=== PATIENT | male | born 1965 | race Caucasian/White ===

== ENCOUNTER → 2021-04-10 07:38 | Outpatient (CLI) | payer BC, SELFPAY ==
--- NOTE | ~2021-04-10 | MR_ITS ---
EXAMINATION: MR knee RT wo con DATE: 04/10/2021 08:25 INDICATION: Medial right knee pain TECHNIQUE: Magnetic resonance imaging (MRI) of the right knee was performed without intravenous contr ast. Sequences included coronal PD-weighted FSE, coronal PD-weighted FS FSE, sagittal T2-weighted FS E, sagittal PD-weighted FS FSE and axial PD weighted fat saturated FSE. COMPARISON: 12/17/2011. FINDINGS: Medial compartment: Medial meniscus is normal. Is approximately 14 x 11 mm region of partial-thickness chondral ulceratio n and fissuring which appears to involve greater than 50% the cartilage thickness but without degener ative subchondral changes at the central aspect of the weightbearing medial femoral condyle. Mild sha llow chondral surface regularity at the central aspect. Lateral tibial plateau. There is a small celina on of mild subarticular edema along the medial rim of the medial tibial plateau. Lateral compartment: Lateral meniscus is normal. Approximately 12 x 4 mm region of similar partial-thickness chondral ulce ration and fissuring at the anterior to central weightbearing lateral femoral condyle. Deep chondral fissuring at the central aspect of the lateral tibial plateau. Both regions or without associated deg enerative subchondral changes. Patellofemoral compartment: Partial-thickness trochlear chondral ulceration involving greater than 50% the cartilage thickness ce ntered along the trochlear groove. Partial-thickness cartilage loss and deep chondral fissure extendi ng across the patellar apical ridge. Small region of deep chondral ulceration at the medial patellar facet. No associated degenerative subchondral changes identified at the trochlear patella. Ligaments and tendons: Anterior and posterior cruciate ligaments are normal. The medial collateral ligament and fibular portia ateral ligament complex are normal. Enthesophytes at the patellar and tibial insertions of the otherw ise normal patellar and distal quadriceps tendons. The visualized medial and lateral hamstring tendon s as well as the iliotibial band are normal. Fluid: Small right knee joint effusion. No loose osteochondral bodies identified. Decrease in a now trace am ount of fluid in the prepatellar bursa consistent with minimal bursitis. Osseous/other: Normal marrow signal aside from the previous noted small region of mild subarticular edema at the med ial tibial plateau. Bone island at the lateral femoral condyle. No fracture or pathologic marrow repl acing process. IMPRESSION: 1. 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 2. Minimal patellar bursitis. Reviewed, dictated and finalized at location A.
== END ==
PROVIDERS: PCP Internal Medicine; Visit Provider Internal Medicine
DX: M17.11 Unilateral primary osteoarthritis, right knee (principal)
CPT/HCPCS: 73721

== ENCOUNTER 2021-11-01 17:27 | Outpatient (CLI) | payer OTHER, SELFPAY ==
--- NOTE | ~2021-11-01 | XR_ITS ---
XR lumbar spine min 4V DATE: 11/01/2021 17:48 INDICATION: Chronic low back pain TECHNIQUE: AP, lateral, bilateral oblique views and coned lateral lumbosacral view COMPARISON: None FINDINGS: Normal alignment of the lumbar spine. There is mild degenerative disc disease throughout th e lumbar spine including mild spurring. No fracture, bone destruction, spondylolysis or spondylolisth esis is evident. The lumbar pedicles are intact. The sacroiliac joints appear normal. IMPRESSION: Mild multilevel degenerative disc disease Reviewed, dictated and finalized at location J. L FOREMAN
== END 2021-11-01 17:28 | disposition home or self-care (01) ==
PROVIDERS: PCP Internal Medicine; Visit Provider Chiropractor
DX: M54.9 Dorsalgia, unspecified (principal); M51.36 Other intervertebral disc degeneration, lumbar region
CPT/HCPCS: 72110

== ENCOUNTER 2024-12-02 08:50 | Outpatient (CLI) | payer OTHER, SELFPAY ==
--- NOTE | ~2024-12-02 | XR_ITS ---
Cervical Spine: AP, lateral, open-mouth views Clinical History: Pain Findings: There is mild reversal normal cervical lordosis. No fracture or subluxation seen. There is advanced degenerative disc narrowing at C5-C6 and C6-C7. There is mild to moderate degenerative disc narrowing C4-C5. There are mild facet joint degenerative changes.. Pre-vertebral soft tissues are unr emarkable. Impression: Moderate degenerative spondylosis overall, as detailed above. Reviewed, dictated and finalized at [facility]. STRATE Impression: Moderate degenerative spondylosis overall, as detailed above.
--- NOTE | ~2024-12-02 | XR_ITS ---
Thoracic spine: Clinical Indication: Back pain AP and lateral views were performed. No fracture is seen. There is normal alignment of the vertebrae. The intervertebral disc spaces appe ar normal. Paravertebral soft tissues appear normal. Probable calcified gallstones noted. Impression: No significant abnormality of the thoracic spine. Probable calcified gallstones. Reviewed, dictated and finalized at [facility]. MILL MIXER Impression: No significant abnormality of the thoracic spine. Probable calcified gallstones.
== END 2024-12-02 08:51 | disposition home or self-care (01) ==
PROVIDERS: PCP Internal Medicine; Visit Provider Internal Medicine
DX: M47.892 Other spondylosis, cervical region (principal)
CPT/HCPCS: 72040; 72070

== ENCOUNTER 2025-06-16 10:24 | Outpatient (CLI) | payer OTHER, SELFPAY ==
--- NOTE | ~2025-06-16 | US_ITS ---
US right upper quadrant INDICATION: Right upper quadrant pain PROCEDURE: Realtime right upper abdominal ultrasound. COMPARISON: No prior studies for comparison. FINDINGS: The pancreas is normal without focal mass or pancreatic ductal dilation. Liver echotexture is normal without focal mass or intrahepatic biliary dilatation. There is normal directional flow in the portal vein. There are gallstones. No gallbladder wall thickening or pericholecystic fluid. Common bile duct measures 4 mm. No sonographic Ordaz's sign. IMPRESSION: 1: Cholelithiasis. Reviewed, dictated and finalized at location O. IMPRESSION: 1: Cholelithiasis.
== END 2025-06-16 10:25 | disposition home or self-care (01) ==
PROVIDERS: PCP Nurse Practitioner; Visit Provider Internal Medicine
DX: R10.11 Right upper quadrant pain (principal); K80.20 Calculus of gallbladder without cholecystitis without obstruction
CPT/HCPCS: 76705

== ENCOUNTER 2025-07-21 09:48 | Outpatient (CLI) | payer OTHER, SELFPAY ==
--- NOTE | ~2025-07-21 | NM_ITS ---
EXAMINATION: NM_HEPATWP_NM DATE: 07/21/2025 11:51 INDICATION: Assess gallbladder ejection fraction COMPARISON: None. TECHNIQUE: 4.9 mCi Tc-99m mebrofenin (Choletec) was administered intravenously. Scintigraphic images of the abdomen were obtained for one hour. 1.6 mcg sincalide (Kinevac) was administered by slow intravenous infusion, and imaging was continued for 30 minutes. Gallbladder ejection fraction was calculated by the technologist. FINDINGS: There is normal clearance of radiotracer from the blood pool. There is homogeneous tracer uptake by the liver. Activity progresses to the gallbladder and bowel. The gallbladder ejection fraction (GBEF) is 48% (normal 10-90%, but most patient with gallbladder dysfunction have GBEF < 35% which does overlap with the normal range). IMPRESSION: 1. Normal hepatobiliary scan Reviewed, dictated and finalized at location A.
--- OUTSIDE RECORDS SUMMARY | 2025-07-21 10:21 | XMS_ITS | Clinical Summary ---
Author Organization [facility] Address [address] [place] [address] Care Team Providers Care Outside Solar Sales Consultant Name Role Phone Cb Amador MD Primary Care Provider + [phone] Allergies No known active allergies Medications albuterol HFA (PROVENTIL HFA,VENTOLIN HFA,PROAIR HFA) 90 mcg/actuation inhalerIndicatio ns:Mild intermittent asthma with acute exacerbation INHALE 2 PUFFS BY MOUTH EVERY 6 HOURS NEEDED FOR WHEEZING 2 each 2 4 Active Additional Information Patient not taking.Reported on 10/12/2024 benzonatate (TESSALON) 100 mg capsuleIndicatio ns:Cough Take 1 capsule (100 mg total) by mouth 3 (three) times a day as needed for cough 42 capsule 4 Active Active Problems No known active problems Surgical History Surgery Date Site/Laterality Comments APPENDECTOMY Appendectomy LASIK TONSILLECTOMY Medical History Medical History Date Comments Asthma Asthma Hx Other Medical Back pain Hx Other Medical Lasik 2003 Hx Other Medical GERD 2003 Hx Other Medical Tonsilectomy 19 77 Family History Medical History Relation Name Comments Diabetes Other 1 Family history of Diabetes mellitus; Heart disease Other 2 Family history of Heart problems; Relation Name Status Comments Other 1 Other 2 Social History Tobacco Use Types Packs/Day Years Used Date Smoking Tobacco: Never Tobacco Cessation:Counseling Given: Not Answered Sex and Gender Information Value Date Recorded Sex Assigned at Not on file 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 Gender Identity Not on file Sexual Orientation Not on file Obstetrics History Last Filed Vital Signs Vital Sign Reading Time Taken Comments Blood Pressure 153/92 10/12/2024 8:36 AM LUMBER TRIPPER Pulse 94 10/12/2024 8:36 AM LUMBER TRIPPER Temperature 37.1 C (98.7 F) 10/12/2024 8:36 AM LUMBER TRIPPER Respiratory Rate 20 10/12/2024 8:36 AM LUMBER TRIPPER Oxygen Saturation 98% 10/12/2024 8:36 AM LUMBER TRIPPER Inhaled Oxygen Concentration - - Weight 90.7 kg (200 lb) 10/12/2024 8:36 AM LUMBER TRIPPER Height 177.8 cm (5' 10) 10/12/2024 8:36 AM LUMBER TRIPPER Body Mass Index 28.7 10/12/2024 8:36 AM LUMBER TRIPPER Plan of Treatment Health Maintenance Due Date Last Done Comments Colon Cancer Screening-Colonoscopy 1963 Depression Screening 1963 Hepatitis C Screening 1963 Prostate Cancer Screening-PSA 1963 Hepatitis B Screening 1981 Regular Well Visit/Exam 18-64 1981 Pneumococcal vaccine <65 (1 of 2 - PCV) 1982 Zoster Vaccine (1 of 2) 2013 Influenza Vaccine (#1) 2025 0, 09/03/2019, 09/13/2018, Additional history exists DTaP/Tdap/Td Vaccine (3 - Td or Tdap) 06/30/2027 06/30/2017, 06/17/2017 Insurance [facility] [employer] Care Teams Outside Solar Sales Consultant Relationship Specialty Start Date End Date Cb Amador MD PCP - General Internal Medicine 10/05/24
--- OUTSIDE RECORDS SUMMARY | 2025-07-21 10:21 | XMS_ITS | Clinical Summary ---
Author Organization [facility] Address [address] [place] [address] Care Team Providers Care Biological Engineer Name Role Phone Unavailable Primary Care Provider Unavailabl e Source Comments [facility],non-owned Affiliates and Associated Physician Practices is amultiple site organization consisting of ambulatory clinics and hospital sitesin [place], [place], [place] and [place]. This disclosure is being madepursuant to the Care Everywhere program and may not contain all information available regarding this patient. Last updated 18.[facility] Allergies No known active allergies Medications * Be aware that medications may not be up to date on this document. Alwaysverify current medications with the patient. 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 Gender Identity Not on file Sexual Orientation Not on file Last Filed Vital Signs Vital Sign Reading Time Taken Comments Blood Pressure 122/72 10/14/2019 9:15 AM FRAME CATCHER Pulse 72 10/14/2019 9:15 AM FRAME CATCHER Temperature 37.1 C (98.7 F) 10/14/2019 9:15 AM FRAME CATCHER Respiratory Rate 16 10/14/2019 9:15 AM FRAME CATCHER Oxygen Saturation 97% 10/14/2019 9:15 AM FRAME CATCHER Inhaled Oxygen Concentration - - Weight 86.2 kg (190 lb) 10/14/2019 9:15 AM FRAME CATCHER Height 177.8 cm (5' 10) 10/14/2019 9:15 AM FRAME CATCHER Body Mass Index 27.26 10/14/2019 9:15 AM FRAME CATCHER Plan of Treatment Health Maintenance Due Date Last Done Comments COLOGUARD (AGES 45-75) - COL ON CA SCREENING 1963 COLON MONITORING 1963 COLONOSCOPY - COLON CA SCREENING 1963 CT COLONOGRAPHY - COLON CA SCREENING 1963 Colorectal Cancer Screening 1963 FIT - COLON CA SCREENING 1963 FLEX SIG - COLON CA SCREENING 1963 LIPID TESTING 1963 HIV SCREENING 1978 HEPATITIS C SCREENING 07/08/1981 DTAP/TDAP/TD VACCINES (1 - Tdap) 1982 PNEUMOCOCCAL VACCINE 50+ (1 of 1 - PCV) 2013 ZOSTER VACCINE (1 of 2) 2013 SCREENING FOR DIABETES 10/14/2019 DEPRESSION SCREENING 10/20/2024 COVID-19 VACCINE (1 - 2023-2 5 season) 2025 INFLUENZA VACCINE (#1) 2025 Respiratory Syncytial Virus (RSV) Vaccine Pt: or over 60 yrs (1 - 1-dose 75+ series) 2038 HEPATITIS B VACCINE Aged Out No longe r eligible based on patient's age to complete this topic HIB VACCINE Aged Out No longer eligi ble based on patient's age to complete this topic HPV VACCINE Aged Out No longer eligi ble based on patient's age to complete this topic MENINGOCOCCAL (Group B) VACC INE SHARED DECISION-MAKING Aged Out No longer eligibl e based on patient's age to complete this topic MENINGOCOCCAL GROUPS A/C/Y/W VACCINE Aged Out No longer eligible b ased on patient's age to complete this topic Insurance [facility]
--- OUTSIDE RECORDS SUMMARY | 2025-07-21 10:21 | XMS_ITS | Clinical Summary ---
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 Gender Identity Not on file Sexual Orientation Not on file Plan of Treatment Health Maintenance Due Date Last Done Comments Hepatitis C Virus (HCV) Screening 1963 Cologuard 2008 Colonoscopy 2008 Colorectal Cancer Screening 2008 Immunochemical Fecal Occult Blood 2008 Pneumococcal Immunization (50+ years) (1 of 1 - PCV) 2013 Zoster Immunization (1 of 2) 2013 Influenza Immunization (#1) 06/20/202506/21, 09/03/2019, 09/13/2018, Additional history exists SARS-COV-2 Immunization ( - season) 2025 Respiratory Syncytial Virus (RSV) Immunization (Adult) (1 - 1-dose 75+ series) 2038 DTaP/Tdap/Td Immunization Discontinued 06/30/2017, TdaP Immunization Completed 06/30/2017, 06/17/2017 Hepatitis B Immunization Aged Out No longer eligible based on patient's age to complete this topic Human Papillomavirus (HPV) Immunization Aged Out No longer eligible based on patient's age to complete this topic Meningococcal Immunization (ACWY) Aged Out No longer eligible based on patient's age to complete this topic Rotavirus Immunization Aged Out No lo nger eligible based on patient's age to complete this topic
== END 2025-07-21 09:49 | disposition home or self-care (01) ==
PROVIDERS: PCP Internal Medicine; Visit Provider Surgery
DX: K80.20 Calculus of gallbladder without cholecystitis without obstruction (principal)
CPT/HCPCS: 78227; A9537; J2805